=== PATIENT | male | born 1955 | race African-American/Black ===

== ENCOUNTER → 2021-01-06 | Outpatient (CLI) | payer BC ==
--- NOTE | 2021-01-06 16:02 | RAD ---
Examination: Right axillary ultrasound INDICATION: 65-year-old man with an palpable lump in the right axilla. COMPARISON: None available. TECHNIQUE: Grayscale and color Doppler imaging of the right axilla was performed in the area of clini valentine concern. FINDINGS: A prominent venous structure in the right axilla is identified and is likely an incidental benign fin ding. However, a 1 cm oval hypoechoic mass is also identified in the area of palpable concern and there is a right axillary lymph node with eccentric cortical thickening measuring up to 3 cm long by 1.3 cm in short axis diameter. IMPRESSION: Suspicious 1 cm right axillary mass with associated axillary adenopathy. This could be reactive but t issue sampling of the mass and axillary lymph node is suggested. This can be accomplished with ultras ound-guided needle biopsy. Discussed with patient. Telephone report also left with patient's referring provider via voicemail at approximately 2:30 PM o n 01/06/2021. Electronically signed by: Vanessa Bautista MD (01/06/2021 3:59 PM) [id number]
== END ==
LOC: US 13:40
PROVIDERS: ATTEND Family Medicine
DX: R22.31 Localized swelling, mass and lump, right upper limb (principal); I80.9 Phlebitis and thrombophlebitis of unspecified site
CPT/HCPCS: 76881